=== PATIENT | male | born 1960 | race Caucasian/White ===

== ENCOUNTER 2020-11-13 18:18 | Emergency (ER) | payer BC ==
[~2020-11-13] VITALS: Ht 177.8 cm; Wt 130.4 kg
[2020-11-13] MEDS ORDERED: LISI20TA20 PO (18:32)
[2020-11-13] MEDS ORDERED: METF-839 PO (18:32)
[2020-11-13] MEDS ORDERED: SERT-138 PO (18:32)
[2020-11-13] MEDS ORDERED: ASPI81TA26 PO (18:32)
[2020-11-13] MEDS ORDERED: ATOR1TAB19 PO (18:32)
[2020-11-13] MEDS ORDERED: GLIM1TAB4 PO (18:32)
[2020-11-13] MEDS ORDERED: CLON1TAB17 PO (18:32)
[2020-11-13] MEDS ORDERED: NORV5TAB PO (18:32)
--- NOTE | 2020-11-13 18:56 | REPVR ---
PROCEDURE INFORMATION: Exam: CT Head Without Contrast Exam date and time: 11/13/2020 6:29 PM Age: 60 years old Clinical indication: Weakness, facial; Additional info: Facial droop since yesterday TECHNIQUE: Imaging protocol: Computed tomography of the head without contrast. Radiation optimization: All CT scans at this facility use at least one of these dose optimization techniques: automated exposure control; mA and/or kV adjustment per patient size (includes targeted exams where dose is matched to clinical indication); or iterative reconstruction. COMPARISON: No relevant prior studies available. FINDINGS: Brain: There is mild parenchymal volume loss. White matter changes are demonstrated in the subcortical, centrum semiovale and periventricular white matter consistent with chronic age related small vessel ischemic changes. Cerebral ventricles: No significant ventriculomegaly. Bones/joints: Unremarkable. No acute fracture. Paranasal sinuses: Inflammatory changes with retention cyst right maxillary sinus. Mastoid air cells: Visualized mastoid air cells are well aerated. Vasculature: Atherosclerotic calcifications are demonstrated in the intracranial carotid arteries bilaterally as well as in the vertebral basilar system. Soft tissues: Unremarkable. IMPRESSION: 1. There is mild parenchymal volume loss. White matter changes are demonstrated in the subcortical, centrum semiovale and periventricular white matter consistent with chronic age related small vessel ischemic changes. 2. No acute intracranial findings. Electronically signed by: Usman Mckeon On 11/13/2020 18:56:24 PM
[2020-11-13 20:27] LABS: BASO # 0.1 10^3/uL (0.0-0.2); BASO % 0.6 % (0.0-1.0); EOS # 0.2 10^3/uL (0.0-0.5); EOS % 2.3 % (0.0-3.0); HEMATOCRIT 40.2 % (42.0-52.0); HEMOGLOBIN 12.9 g/dl (13.5-17.5); LYMPH % 23.6 % (24.0-44.0); MEAN CORPUSCULAR HEMOGLOBIN 28.4 pg (27.0-33.0); MEAN CORPUSCULAR HGB CONC 32.1 g/dl (32.0-36.5); MEAN CORPUSCULAR VOLUME 88.5 fl (80.0-96.0); MONO # 0.7 10^3/uL (0.0-0.8); MONO % 8.4 % (0.0-5.0); NEUTROPHILS # 5.6 10^3/uL (1.5-8.5); NEUTROPHILS % 64.8 % (36.0-66.0); PLATELET COUNT, AUTOMATED 207 10^3/uL (150-450); RED BLOOD COUNT 4.54 10^6/uL (4.30-6.10); WHITE BLOOD COUNT 8.6 10^3/uL (4.0-10.0)
[2020-11-13 20:40] LABS: INR 1.01; PROTHROMBIN TIME 13.5 SECONDS (12.5-14.3)
[2020-11-13 20:41] LABS: PARTIAL THROMBOPLASTIN TIME 30.5 SECONDS (24.2-38.5)
[2020-11-13 20:42] LABS: CK-MB VALUE MASS 1.4 NG/ML (<3.6); CPK CREATINE PHOSPHOKINASE 106 U/L (39-308); MB/CK RELATIVE INDEX 1.32 (< OR =4); TROPONIN I < 0.02 NG/ML (< 0.10)
[2020-11-13] MEDS ORDERED: predniSONE 20 MG TAB PO ONE (20:45)
[2020-11-13 20:54] VITALS: BP 124/69
[2020-11-13] MEDS ORDERED: PRED20TA PO ×2 (20:55→20:58)
--- NOTE | 2020-11-13 21:19 | ECGEPIP ---
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
== END 2020-11-13 21:25 | disposition home or self-care (01) ==
LOC: M ED 18:18
DX: G51.0 Bell's palsy (principal); E11.9 Type 2 diabetes mellitus without complications; I10 Essential (primary) hypertension; Z79.899 Other long term (current) drug therapy; Z79.84 Long term (current) use of oral hypoglycemic drugs; Z79.82 Long term (current) use of aspirin; Z88.0 Allergy status to penicillin

== ENCOUNTER → 2022-11-15 | Outpatient (CLI) | payer BC ==
[~2022-11-15] MED LIST: ASPI81TA26 PO; ATOR1TAB19 PO; CLON1TAB17 PO; GLIM1TAB4 PO; LISI20TA37 PO; METF-839 PO; NORV5TAB PO; PRED20TA PO; SERT-138 PO
[2022-11-15 16:42] LABS: BASO # 0.1 10^3/uL (0.0-0.2); EOS # 0.2 10^3/uL (0.0-0.5); EOS % 2.3 % (0.0-3.0); HEMATOCRIT 44.4 % (42.0-52.0); HEMOGLOBIN 13.8 g/dl (13.5-17.5); LYMPH # 2.2 10^3/uL (1.5-5.0); LYMPH % 25.1 % (24.0-44.0); MEAN CORPUSCULAR HEMOGLOBIN 28.2 pg (27.0-33.0); MEAN CORPUSCULAR HGB CONC 31.1 g/dl (32.0-36.5); MEAN CORPUSCULAR VOLUME 90.8 fl (80.0-96.0); MONO # 0.8 10^3/uL (0.0-0.8); NEUTROPHILS # 5.5 10^3/uL (1.5-8.5); NEUTROPHILS % 62.4 % (36.0-66.0); PLATELET COUNT, AUTOMATED 278 10^3/uL (150-450); RED BLOOD COUNT 4.89 10^6/uL (4.30-6.10); WHITE BLOOD COUNT 8.9 10^3/uL (4.0-10.0)
[2022-11-15 17:08] LABS: BILIRUBIN,TOTAL 0.6 MG/DL (0.3-1.2); CALCIUM LEVEL 9.7 MG/DL (8.3-10.6); CHOLESTEROL RISK RATIO 3.68 (<5); CREATININE FOR GFR 1.59 MG/DL (0.70-1.30); FERRITIN 51.6 NG/ML (10.5-307.3); GLOMERULAR FILTRATION RATE 47.2 (>49); HDL CHOLESTEROL 39.6 MG/DL (>40); LDL CHOLESTEROL 56.8 MG/DL (<100); POTASSIUM SERUM 3.5 MMOL/L (3.5-5.1); TOTAL 25(OH) VITAMIN D 32.5 NG/ML (20.0-100.0); TOTAL PROTEIN 7.2 G/DL (5.7-8.2)
== END ==
LOC: M WUC 11:27
PROVIDERS: ATTEND Family Medicine
DX: E78.5 Hyperlipidemia, unspecified (principal); E11.69 Type 2 diabetes mellitus with other specified complication

== ENCOUNTER → 2022-11-18 | Outpatient (CLI) | payer BC ==
[2022-11-18 11:21] LABS: CREATININE, URINE 235.9 MG/DL; CREATININE,RANDOM URINE 235.9 MG/DL; MAU/CREAT RATIO 1.6 MCG/MG (0.0-30.0)
== END ==
LOC: M WUC 09:36
PROVIDERS: ATTEND Family Medicine
DX: E11.69 Type 2 diabetes mellitus with other specified complication (principal); E78.5 Hyperlipidemia, unspecified

== ENCOUNTER → 2022-12-12 | Outpatient (CLI) | payer BC ==
[2022-12-12 15:00] LABS: HEMOGLOBIN A1c 7.1 % (4.0-6.0)
[2022-12-12 15:21] LABS: CALCIUM LEVEL 9.4 MG/DL (8.3-10.6); CREATININE FOR GFR 1.74 MG/DL (0.70-1.30); GLOMERULAR FILTRATION RATE 42.5 (>49); POTASSIUM SERUM 4.2 MMOL/L (3.5-5.1)
== END ==
LOC: M WUC 13:12
PROVIDERS: ATTEND Family Medicine
DX: E11.69 Type 2 diabetes mellitus with other specified complication (principal)

== ENCOUNTER → 2023-03-20 | Outpatient (CLI) | payer BC ==
[2023-03-20 14:18] LABS: CREATININE FOR GFR 1.43 MG/DL (0.70-1.30); GLOMERULAR FILTRATION RATE 53.2 (>49); POTASSIUM SERUM 3.9 MMOL/L (3.5-5.1)
== END ==
LOC: M WUC 09:36
PROVIDERS: ATTEND Family Medicine
DX: N18.31 Chronic kidney disease, stage 3a (principal)

== ENCOUNTER → 2023-06-04 | Outpatient (REF) | payer BC ==
[2023-06-04 17:46] LABS: CALCIUM LEVEL 9.7 MG/DL (8.3-10.6); CREATININE FOR GFR 1.84 MG/DL (0.70-1.30); GLOMERULAR FILTRATION RATE 39.8 (>49); POTASSIUM SERUM 3.8 MMOL/L (3.5-5.1)
[2023-06-04 17:59] LABS: HEMOGLOBIN A1c 7.3 % (4.0-6.0)
== END ==
LOC: M LABDRWAD 16:34
PROVIDERS: ATTEND Family Medicine
DX: E11.69 Type 2 diabetes mellitus with other specified complication (principal)